=== PATIENT | male | born 1940 | race Caucasian/White ===

== ENCOUNTER 2017-10-04 12:43 | Inpatient (IN) | payer MEDICARE ==
[~2017-10-04] VITALS: Ht 193 cm; Wt 113.9 kg
[2017-10-04 13:33] LABS: BASOPHILS ABSOLUTE AUTO 0.07 K/mm3 (0.00-0.23); BASOPHILS PERCENT AUTO 0 % (0-2); EOSINOPHILS ABSOLUTE AUTO 0.01 K/mm3 (0.00-0.68); EOSINOPHILS PERCENT AUTO 0 % (0-6); Hematocrit 41.6 % (37.0-53.0); Hemoglobin 12.9 g/dL (13.5-17.5); IMMATURE GRAN ABSOLUTE AUTO 0.13 K/mm3 (0.00-0.10); IMMATURE GRAN PERCENT AUTO 1 % (0-1); LYMPHOCYTES PERCENT AUTO 5 % (21-46); MONOCYTES ABSOLUTE AUTO 1.42 K/mm3 (0.16-1.47); MONOCYTES PERCENT AUTO 8 % (4-13); Mean Corpuscular HGB 26.3 pg (26.0-34.0); Mean Corpuscular Volume 85 fL (80-100); Mean Platelet Volume 9.5 fL (9.1-12.4); NEUTROPHILS ABSOLUTE AUTO 14.92 K/mm3 (1.96-9.15); NEUTROPHILS PERCENT AUTO 86 % (41-73); Platelet Count 277 K/mm3 (150-400); RDW Coefficient Variation 15.7 % (11.7-14.2); RDW Standard Deviation 48.4 fL (35.1-46.3); Red Blood Cell Count 4.91 M/mm3 (4.30-5.90); White Blood Cell Count 17.35 K/mm3 (4.00-11.30)
[2017-10-04 13:52] LABS: Alanine Aminotransfer (ALT/SGP 19 U/L (12-78); Albumin, Blood 2.1 g/dL (3.4-5.0); Albumin/Globulin Ratio 0.4 (0.8-1.8); Alk Phos 145 U/L (50-136); Anion Gap 11 mmol/L (6-16); Aspartate Aminotrans (AST/SGOT 24 U/L (12-37); Blood Urea Nitrogen 25 mg/dL (8-24); Bun/Creatinine Ratio 22.1 (12.0-20.0); CO2, Blood 24 mmol/L (21-32); Calcium, Blood 9.2 mg/dL (8.5-10.1); Chloride, Blood 101 mmol/L (98-108); Creatinine, Blood 1.13 mg/dL (0.60-1.20); Globulin, Blood 5.6 g/dL (2.2-4.0); Glomerular Filtration Rate >60 (60-); Glucose, Blood 274 mg/dL (70-99); Potassium, Blood 4.7 mmol/L (3.5-5.5); Sodium, Blood 136 mmol/L (136-145); Total Protein, Blood 7.7 g/dL (6.4-8.2); Troponin I <0.015 ng/mL (0.000-0.040)
[2017-10-04 14:04] LABS: Influenza A Negative (NEGATIVE); Influenza B Negative (NEGATIVE)
[2017-10-04] MEDS ORDERED: WARF3 PO (15:30)
[2017-10-04] MEDS ORDERED: DIGOX125 MCG PO (15:30)
[2017-10-04] MEDS ORDERED: LISI20 (15:31)
[2017-10-04] MEDS ORDERED: SPIR50 PO (15:31)
[2017-10-04] MEDS ORDERED: METO50 PO (15:31)
[2017-10-04] MEDS ORDERED: GLIP5 PO (15:32)
[2017-10-04] MEDS ORDERED: FURO20 PO (15:32)
[2017-10-04] MEDS ORDERED: PIOG15 PO (15:32)
[2017-10-04] MEDS ORDERED: POTCHL10ER PO (15:32)
[2017-10-04 19:01] LABS: Prothrombin Time Results 70.3 Sec (9.7-11.5)
[2017-10-04 19:08] LABS: International Normalized Ratio 6.38
[2017-10-05 05:48] LABS: BASOPHILS ABSOLUTE AUTO 0.07 K/mm3 (0.00-0.23); BASOPHILS PERCENT AUTO 0 % (0-2); EOSINOPHILS ABSOLUTE AUTO 0.09 K/mm3 (0.00-0.68); EOSINOPHILS PERCENT AUTO 1 % (0-6); Hematocrit 36.9 % (37.0-53.0); Hemoglobin 11.4 g/dL (13.5-17.5); IMMATURE GRAN PERCENT AUTO 1 % (0-1); LYMPHOCYTES ABSOLUTE AUTO 1.15 K/mm3 (0.84-5.20); LYMPHOCYTES PERCENT AUTO 7 % (21-46); MONOCYTES ABSOLUTE AUTO 1.64 K/mm3 (0.16-1.47); MONOCYTES PERCENT AUTO 10 % (4-13); Mean Corpuscular HGB 26.3 pg (26.0-34.0); Mean Corpuscular HGB Conc 30.9 g/dL (31.5-36.5); Mean Corpuscular Volume 85 fL (80-100); Mean Platelet Volume 9.9 fL (9.1-12.4); NEUTROPHILS ABSOLUTE AUTO 12.87 K/mm3 (1.96-9.15); NEUTROPHILS PERCENT AUTO 81 % (41-73); Platelet Count 251 K/mm3 (150-400); RDW Coefficient Variation 15.6 % (11.7-14.2); RDW Standard Deviation 48.2 fL (35.1-46.3); Red Blood Cell Count 4.34 M/mm3 (4.30-5.90); White Blood Cell Count 15.92 K/mm3 (4.00-11.30)
[2017-10-05 06:03] LABS: Prothrombin Time Results 54.4 Sec (9.7-11.5)
[2017-10-05 06:07] LABS: International Normalized Ratio 4.98
[2017-10-05 06:26] LABS: Alanine Aminotransfer (ALT/SGP 17 U/L (12-78); Albumin, Blood 1.7 g/dL (3.4-5.0); Albumin/Globulin Ratio 0.3 (0.8-1.8); Alk Phos 122 U/L (50-136); Anion Gap 8 mmol/L (6-16); Aspartate Aminotrans (AST/SGOT 23 U/L (12-37); Bilirubin, Total 0.9 mg/dL (0.1-1.0); Blood Urea Nitrogen 24 mg/dL (8-24); Bun/Creatinine Ratio 23.8 (12.0-20.0); CO2, Blood 25 mmol/L (21-32); Calcium, Blood 8.8 mg/dL (8.5-10.1); Chloride, Blood 104 mmol/L (98-108); Creatinine, Blood 1.01 mg/dL (0.60-1.20); Digoxin (Lanoxin) 0.76 ug/mL (0.80-2.00); Globulin, Blood 4.9 g/dL (2.2-4.0); Glomerular Filtration Rate >60 (60-); Glucose, Blood 124 mg/dL (70-99); Sodium, Blood 137 mmol/L (136-145); Total Protein, Blood 6.6 g/dL (6.4-8.2)
[2017-10-06 05:40] LABS: BASOPHILS ABSOLUTE AUTO 0.08 K/mm3 (0.00-0.23); BASOPHILS PERCENT AUTO 1 % (0-2); EOSINOPHILS ABSOLUTE AUTO 0.28 K/mm3 (0.00-0.68); EOSINOPHILS PERCENT AUTO 2 % (0-6); Hematocrit 35.1 % (37.0-53.0); Hemoglobin 10.6 g/dL (13.5-17.5); IMMATURE GRAN ABSOLUTE AUTO 0.15 K/mm3 (0.00-0.10); IMMATURE GRAN PERCENT AUTO 1 % (0-1); LYMPHOCYTES PERCENT AUTO 8 % (21-46); MONOCYTES ABSOLUTE AUTO 1.32 K/mm3 (0.16-1.47); MONOCYTES PERCENT AUTO 9 % (4-13); Mean Corpuscular HGB 25.9 pg (26.0-34.0); Mean Corpuscular HGB Conc 30.2 g/dL (31.5-36.5); Mean Corpuscular Volume 86 fL (80-100); Mean Platelet Volume 9.6 fL (9.1-12.4); NEUTROPHILS PERCENT AUTO 79 % (41-73); Platelet Count 266 K/mm3 (150-400); RDW Coefficient Variation 15.9 % (11.7-14.2); RDW Standard Deviation 49.8 fL (35.1-46.3); Red Blood Cell Count 4.09 M/mm3 (4.30-5.90); White Blood Cell Count 14.53 K/mm3 (4.00-11.30)
[2017-10-06 05:52] LABS: International Normalized Ratio 1.71; Prothrombin Time Results 18.1 Sec (9.7-11.5)
[2017-10-06 12:41] LABS: International Normalized Ratio 1.61
[2017-10-07 06:00] LABS: BASOPHILS ABSOLUTE AUTO 0.08 K/mm3 (0.00-0.23); BASOPHILS PERCENT AUTO 1 % (0-2); EOSINOPHILS ABSOLUTE AUTO 0.38 K/mm3 (0.00-0.68); EOSINOPHILS PERCENT AUTO 3 % (0-6); Hematocrit 35.7 % (37.0-53.0); Hemoglobin 11.1 g/dL (13.5-17.5); IMMATURE GRAN ABSOLUTE AUTO 0.16 K/mm3 (0.00-0.10); IMMATURE GRAN PERCENT AUTO 1 % (0-1); LYMPHOCYTES ABSOLUTE AUTO 1.37 K/mm3 (0.84-5.20); LYMPHOCYTES PERCENT AUTO 11 % (21-46); MONOCYTES ABSOLUTE AUTO 1.22 K/mm3 (0.16-1.47); MONOCYTES PERCENT AUTO 10 % (4-13); Mean Corpuscular HGB 26.1 pg (26.0-34.0); Mean Corpuscular HGB Conc 31.1 g/dL (31.5-36.5); Mean Corpuscular Volume 84 fL (80-100); Mean Platelet Volume 9.7 fL (9.1-12.4); NEUTROPHILS ABSOLUTE AUTO 9.17 K/mm3 (1.96-9.15); NEUTROPHILS PERCENT AUTO 74 % (41-73); Platelet Count 298 K/mm3 (150-400); RDW Coefficient Variation 15.8 % (11.7-14.2); Red Blood Cell Count 4.25 M/mm3 (4.30-5.90); White Blood Cell Count 12.38 K/mm3 (4.00-11.30)
[2017-10-07 06:15] LABS: International Normalized Ratio 1.46; Prothrombin Time Results 15.4 Sec (9.7-11.5)
[2017-10-07 06:26] LABS: Anion Gap 6 mmol/L (6-16); Blood Urea Nitrogen 28 mg/dL (8-24); Bun/Creatinine Ratio 26.7 (12.0-20.0); CO2, Blood 28 mmol/L (21-32); Calcium, Blood 8.9 mg/dL (8.5-10.1); Chloride, Blood 103 mmol/L (98-108); Creatinine, Blood 1.05 mg/dL (0.60-1.20); Glomerular Filtration Rate >60 (60-); Glucose, Blood 118 mg/dL (70-99); Potassium, Blood 4.1 mmol/L (3.5-5.5); Sodium, Blood 137 mmol/L (136-145)
[2017-10-08 05:19] LABS: Hematocrit 37.5 % (37.0-53.0); Hemoglobin 11.3 g/dL (13.5-17.5); Mean Corpuscular HGB 25.5 pg (26.0-34.0); Mean Corpuscular HGB Conc 30.1 g/dL (31.5-36.5); Mean Corpuscular Volume 85 fL (80-100); Mean Platelet Volume 9.5 fL (9.1-12.4); Platelet Count 339 K/mm3 (150-400); RDW Coefficient Variation 15.8 % (11.7-14.2); RDW Standard Deviation 48.3 fL (35.1-46.3); Red Blood Cell Count 4.44 M/mm3 (4.30-5.90); White Blood Cell Count 12.33 K/mm3 (4.00-11.30)
[2017-10-08 05:29] LABS: International Normalized Ratio 1.75; Prothrombin Time Results 18.5 Sec (9.7-11.5)
[2017-10-08 05:53] LABS: Albumin, Blood 1.7 g/dL (3.4-5.0); Anion Gap 8 mmol/L (6-16); Blood Urea Nitrogen 31 mg/dL (8-24); Bun/Creatinine Ratio 29.2 (12.0-20.0); CO2, Blood 28 mmol/L (21-32); Calcium, Blood 9.4 mg/dL (8.5-10.1); Chloride, Blood 102 mmol/L (98-108); Creatinine, Blood 1.06 mg/dL (0.60-1.20); Digoxin (Lanoxin) 1.71 ug/mL (0.80-2.00); Glomerular Filtration Rate >60 (60-); Glucose, Blood 117 mg/dL (70-99); Potassium, Blood 4.7 mmol/L (3.5-5.5); Sodium, Blood 138 mmol/L (136-145)
[2017-10-08] MEDS ORDERED: GUAI600T33 PO (16:16)
[2017-10-08] MEDS ORDERED: AZIT500 PO (16:16)
[2017-10-08] MEDS ORDERED: ALBU90OI6 INH (16:17)
[2017-10-08] MEDS ORDERED: CEFU500T30 PO (16:18)
== END 2017-10-08 16:44 | disposition home or self-care (01) | DRG 871 ==
LOC: ER 12:43 → MEDS 15:54
PROVIDERS: Emergency Medicine; Family Medicine; Internal Medicine; Physician Assistant
PROC: 2Y41X5Z Packing of Nasal Region using Packing Material (ICD-10-PCS; principal; 2017-10-04)
DX: A41.9 Sepsis, unspecified organism (principal); J18.9 Pneumonia, unspecified organism; J96.01 Acute respiratory failure with hypoxia; J91.8 Pleural effusion in other conditions classified elsewhere; I48.2 Chronic atrial fibrillation; E11.22 Type 2 diabetes mellitus with diabetic chronic kidney disease; R04.0 Epistaxis; N18.2 Chronic kidney disease, stage 2 (mild); I12.9 Hypertensive chronic kidney disease with stage 1 through stage 4 chronic kidney disease, or unspecified chronic kidney disease; Z66 Do not resuscitate; Z79.01 Long term (current) use of anticoagulants; Z79.84 Long term (current) use of oral hypoglycemic drugs; Z79.899 Other long term (current) drug therapy; Z86.718 Personal history of other venous thrombosis and embolism; Z87.891 Personal history of nicotine dependence
CPT/HCPCS: 36415; 71046; 80048; 80053; 80069; 80162; 82947; 83605; 83735; 83880; 84484; 85025; 85027; 85610; 87040; 87070; 87077; 87186; 87205; 87804; 93005; 93010; 93306; 94640; 94760; 96365; 96368; 97116; 97162; 97166; 97530; 97535; 99285; G8978; G8979; G8987; G8988; J0456; J0696; J1160; J1940; J7030; J7050

== ENCOUNTER → 2018-03-30 | Outpatient (CLI) | payer MEDICARE ==
[~2018-03-30] MED LIST: ALBU90OI6 INH; AZIT500 PO; CEFU500T30 PO; DIGOX125 MCG PO; FURO20 PO; GLIP5 PO; GUAI600T33 PO; LISI20; METO50 PO; PIOG15 PO; POTCHL10ER PO; SPIR50 PO; WARF3 PO
== END ==
LOC: LAB 17:57 → LAB SHORT 17:57
DX: C44.319 Basal cell carcinoma of skin of other parts of face (principal); L08.9 Local infection of the skin and subcutaneous tissue, unspecified; Z48.02 Encounter for removal of sutures
CPT/HCPCS: 87070; 87205

== ENCOUNTER → 2019-10-10 | Outpatient (CLI) | payer MEDICARE | LOC: LAB 18:48 → LAB SHORT 18:48 | DX: L08.9 Local infection of the skin and subcutaneous tissue, unspecified (principal); L57.0 Actinic keratosis | CPT/HCPCS: 87070; 87205 ==

== ENCOUNTER 2020-02-06 09:50 | Inpatient (IN) | payer MEDICARE ==
[~2020-02-06] VITALS: Ht 182.9 cm; Wt 124.5 kg
[2020-02-06 10:17] LABS: BASOPHILS ABSOLUTE AUTO 0.08 K/mm3 (0.00-0.23); BASOPHILS PERCENT AUTO 1 % (0-2); EOSINOPHILS PERCENT AUTO 4 % (0-6); Hematocrit 47.3 % (37.0-53.0); Hemoglobin 14.9 g/dL (13.5-17.5); IMMATURE GRAN ABSOLUTE AUTO 0.04 K/mm3 (0.00-0.10); IMMATURE GRAN PERCENT AUTO 0 % (0-1); LYMPHOCYTES ABSOLUTE AUTO 1.91 K/mm3 (0.84-5.20); LYMPHOCYTES PERCENT AUTO 17 % (21-46); MONOCYTES ABSOLUTE AUTO 1.08 K/mm3 (0.16-1.47); MONOCYTES PERCENT AUTO 10 % (4-13); Mean Corpuscular HGB 28.5 pg (26.0-34.0); Mean Corpuscular HGB Conc 31.5 g/dL (31.5-36.5); Mean Corpuscular Volume 91 fL (80-100); Mean Platelet Volume 9.9 fL (9.1-12.4); NEUTROPHILS ABSOLUTE AUTO 7.62 K/mm3 (1.96-9.15); NEUTROPHILS PERCENT AUTO 68 % (41-73); Platelet Count 220 K/mm3 (150-400); RDW Coefficient Variation 13.5 % (11.7-14.2); RDW Standard Deviation 44.9 fL (35.1-46.3); Red Blood Cell Count 5.22 M/mm3 (4.30-5.90); White Blood Cell Count 11.13 K/mm3 (4.00-11.30)
[2020-02-06 10:37] LABS: Alanine Aminotransfer (ALT/SGP 33 U/L (12-78); Albumin/Globulin Ratio 0.4 (0.8-1.8); Alk Phos 146 U/L (50-136); Anion Gap 8 mmol/L (6-16); Aspartate Aminotrans (AST/SGOT 39 U/L (12-37); Blood Urea Nitrogen 20 mg/dL (8-24); Bun/Creatinine Ratio 21.6 (12.0-20.0); CO2, Blood 26 mmol/L (21-32); Calcium, Blood 8.8 mg/dL (8.5-10.1); Chloride, Blood 105 mmol/L (98-108); Creatinine, Blood 0.93 mg/dL (0.60-1.20); Globulin, Blood 5.4 g/dL (2.2-4.0); Glomerular Filtration Rate >60 (60-); Glucose, Blood 183 mg/dL (70-99); Magnesium, Blood 1.6 mg/dL (1.6-2.4); Potassium, Blood 4.1 mmol/L (3.5-5.5); Prothrombin Time Results 69.2 Sec (9.7-11.5); Sodium, Blood 139 mmol/L (136-145); Total Protein, Blood 7.4 g/dL (6.4-8.2)
[2020-02-06 10:44] LABS: International Normalized Ratio 7.23
[2020-02-06] MEDS ORDERED: Coumadin2 MG PO (13:16)
--- NOTE | 2020-02-06 17:41 | NUR ---
SHIFT SUMMARY PT ALERT AND ORIENTED. VS STABLE. O2 SATS REMAIN ABOVE 90% ON RA. BP STABLE. HR 90-120'S. CARDIZEM GTT AT 10ML/H. PT DENIES ANY PAIN. PT HAS MULTIPLE ABRAISIONS DUE TO A FALL PRIOR TO ADMIT. PT ABLE TO REPOSITION HIMSELF IN BED. DAUGHTER CALLED AND UPDATED ON STATUS. WILL CONTINUE TO MONITOR AND REPORT TO ONCOMING RN.
--- NOTE | 2020-02-06 19:32 | NUR ---
SHIFT REPORT PT HAD GLF. MULTIPLE ABRASIONS AND BRUISING SCATTERED T/O. LACERATION/BRUISING ON RIGHT ELBOW. LACERATION ACROSS THE RIGHT SIDE OF HEAD. LACERATION ON RIGHT HAND. PT HAD MILD EPISTASIS AT 1830. BLEEDING STOPPED AFTER PRESSURE WAS HELD FOR 10 MIN. STAFF NURSE NOTIFIED. PT IS IN A-FIB WITH RATE BETWEEN 90'S-120'S. DILTIAZEM INFUSING PER EMAR. O2 SATIS ABOVE 92% ON RA. PT IS ALERT AND ORIENTED. CALL LIGHT WITHIN REACH. SHIFT REPORT GIVEN TO ONCOMING STAFF NURSE.
--- NOTE | 2020-02-06 23:09 | NUR ---
UPDATE PT'S HR IN 80-90'S NOTED ON TELE; CARDIZEM GTT TITRATED TO 5 MG/HR; NO ACUTE CHANGES NOTED
[2020-02-07 04:45] LABS: Hematocrit 42.7 % (37.0-53.0); Hemoglobin 13.4 g/dL (13.5-17.5); Mean Corpuscular HGB 28.1 pg (26.0-34.0); Mean Corpuscular HGB Conc 31.4 g/dL (31.5-36.5); Mean Corpuscular Volume 90 fL (80-100); Platelet Count 207 K/mm3 (150-400); RDW Coefficient Variation 13.3 % (11.7-14.2); RDW Standard Deviation 43.8 fL (35.1-46.3); Red Blood Cell Count 4.77 M/mm3 (4.30-5.90); White Blood Cell Count 9.79 K/mm3 (4.00-11.30)
[2020-02-07 04:59] LABS: International Normalized Ratio 1.69; Prothrombin Time Results 17.6 Sec (9.7-11.5)
[2020-02-07 05:04] LABS: Anion Gap 6 mmol/L (6-16); Blood Urea Nitrogen 16 mg/dL (8-24); Bun/Creatinine Ratio 19.6 (12.0-20.0); CO2, Blood 28 mmol/L (21-32); Calcium, Blood 8.7 mg/dL (8.5-10.1); Chloride, Blood 103 mmol/L (98-108); Creatinine, Blood 0.82 mg/dL (0.60-1.20); Glomerular Filtration Rate >60 (60-); Glucose, Blood 137 mg/dL (70-99); Potassium, Blood 3.7 mmol/L (3.5-5.5); Sodium, Blood 137 mmol/L (136-145)
--- NOTE | 2020-02-07 05:50 | NUR ---
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
--- NOTE | 2020-02-07 06:54 | NUR ---
UPDATE PT UP TO CHAIR THIS AM; HR SUSTAINING 120-130'S ON MONITOR; CARDIZEM GTT INCREASED TO 10MG/HR; PT EDUCATED ON NEED TO INCREASE AND STATES HR IS 110-115 AT BASELINE; CALL LIGHT IN REACH
--- NOTE | 2020-02-07 16:00 | NUR ---
PT WAS OFF OF CARDIZEM DRIP AROUND 1200 PT WAS STARTED ON ORAL METOPROLOL 50MG IR BID, HRR STILL AFIB NOW SUSTAINING ON THE 80'S-90'S. PT DENIES CHEST PAIN PRESSURE. SATS ABOVE 92% ON ROOMAIR, SOB WITH EXERTION, PT WAS ON 1L OF O2 FOR SUPPORT WHEN WORKING WITH THERAPY ALSO PT NOTED TO HAVE SOME OCCASIONAL WHEEZES ESPECIALLY PRE AND POST AMBULATION/TRANSFER, DR LAUREN AWARE ORDER RECEIVED FOR PRVENTIL UPDRAFT Q4HRS. PT WORKED WITH THERAPY ABLE TO AMBULATE AND TRANSFER TO CHAIR VIA WALKER 2 PA. PT HAS UNSTEADY GAIT BUT ABLE TO TAKE SOME STEPS SAFELY. PT CURRENTLY RESTING IN BED, CALL LIGHTS WITHIN REACH WILL MONITOR
--- NOTE | 2020-02-07 19:15 | NUR ---
REPORT GIVEN TO JERRY APONTE, PT REMAINS OFF OF CARDIZEM GTT, HRR REMAINS AFIB 90'S-110'S. DENIES CHEST PAIN/PRESSURE. VITALS HAS BEEN STABLE. PT CURRNETLY RESTING IN BED ABLE TO MAKE NEEDS KNOWN, CALL LIGHTS WITHIN REACH
--- NOTE | 2020-02-08 02:47 | NUR ---
ASSUMED CARE OF PATIENT AT APPROXIMATELY 1900 FROM [facility] Slaughter RN. PATIENT ALERT AND ORIENTED X4; FOREGETFUL AT TIMES; VERY HARD OF HEARING. PATIENT DENIES CP/PRESSURE, NUMBNESS, TINGLING, DIZZINESS OR NAUSEA. AFIB ON TELE W/ A RATE OF 110-115; OXYGEN SATURATION ABOVE 90% ON 1LPM VIA NC; DYSPNEA W/ ACTIVITY; HR INCREASES WITH AMBULATION. MAX ASSIST OUT OF BED. PIV S/L. PATIENT CURRENTLY RESTING IN BED; CALL LIGHT IN REACH; BED IN LOWEST POSISTION; BED ALARM ON; WILL CONTINUE TO MONITOR AND ASSESS UNTIL END OF SHIFT.
[2020-02-08 04:25] LABS: International Normalized Ratio 1.38; Prothrombin Time Results 14.5 Sec (9.7-11.5)
--- NOTE | 2020-02-08 12:08 | NUR ---
A&Ox4. PT SLOW TO RESPOND AT TIMES. OL[place]. LUNG SOUNDS WHEEZY THROUGHOUT ALL MAGDALENO. DYSPNIC. DIFFICULTY SPEAKING IN FULL SENTENCES. O2 SAT @ 94% ON RA AT THIS TIME. ON TELE. AFIB W/ RVR @ 110s. DENIES CP AT THIS TIME. STRONG PULSES THROUGHOUT. ABD DISTENDED AND FIRM. DENIES PN. LAST BM WAS 02/08/20. ABLE TO USE URINAL W/ MINIMAL ASSISTANCE. PT HAS GENERALIZED WEAKNESS. 2 PERSON ASSIST TO GET OUT OF BED. UNSTABLE ON FEET. SUSTAINED A GLF PRIOR TO ADMISSION. WOUND ON POSTERIOR HEAD. ABRASIONS ON BILAT ELBOWS, AND DISCOLORATION IN LOWER R LEG. IV IN RAC PATENT. PT CURRENTLY RESTING IN BED. BED IN LOW POSITION, RAILS UP, AND CALL LIGHT W/IN REACH.
--- NOTE | 2020-02-08 18:45 | NUR ---
SHIFT SUMMARY PT REPORTS DECREASE IN SHORTNESS OF BREATH. ABLE TO SPEAK IN FULL SENTENCES. PT WAS ANXIOUS THIS MORNING, WANTING TO GET HIS "AFFAIRS IN ORDER" BY SPEAKING WITH HIS DAUGHTER. PT WAS INITIALLY UNCOOPERATIVE WITH PT/OT BUT AFTER DAUGHTER VISIT HIS MOOD BECAME HAPPIER. DAUGHTER INFORMED THAT PT MAY REQUIRE TO GO TO A SNF BEFORE GOING HOME.
[2020-02-09 05:07] LABS: Hematocrit 42.9 % (37.0-53.0); Hemoglobin 13.6 g/dL (13.5-17.5); Mean Corpuscular HGB 28.1 pg (26.0-34.0); Mean Corpuscular HGB Conc 31.7 g/dL (31.5-36.5); Mean Corpuscular Volume 89 fL (80-100); Mean Platelet Volume 9.9 fL (9.1-12.4); Platelet Count 239 K/mm3 (150-400); RDW Coefficient Variation 13.2 % (11.7-14.2); RDW Standard Deviation 43.4 fL (35.1-46.3); Red Blood Cell Count 4.84 M/mm3 (4.30-5.90)
[2020-02-09 05:32] LABS: Anion Gap 3 mmol/L (6-16); Blood Urea Nitrogen 26 mg/dL (8-24); Bun/Creatinine Ratio 30.8 (12.0-20.0); CO2, Blood 30 mmol/L (21-32); Chloride, Blood 103 mmol/L (98-108); Creatinine, Blood 0.84 mg/dL (0.60-1.20); Glomerular Filtration Rate >60 (60-); Glucose, Blood 205 mg/dL (70-99); Potassium, Blood 3.8 mmol/L (3.5-5.5); Sodium, Blood 136 mmol/L (136-145)
--- NOTE | 2020-02-09 06:26 | NUR ---
Patient did well throughout the shift and vital signs remain stable. Patient s blood glucose was more elevated than yesterday but this is likely secondary to the new steroids medications that he took starting on 02/07. No current concerns for this patient.
--- NOTE | 2020-02-09 08:00 | NUR ---
pt laying in bed awake a/ox3, forgetful, cooperative with care, follows commands well, denies pain at this time, lungs are clear in upper haile, dim in bases, resp even and unlabored, no cough noted, hrirr, tele in place running afib in the 80's at this time, did azul down to the 50's durring the night, iv site is clear and patent, btx4, abd round soft nontender, voids without diff, skin c/w/d, maew, dianne, call light in reach.
--- NOTE | 2020-02-09 12:36 | NUR ---
pt was able to get oob and ambulate in rowell with a walker and PT this late morning, is currently sitting in a recliner in the room, became upset earlier wanting to get oob, and refusing to go to snf, but after his walk and working with PT he is agreeable to go. no needs or complaints at this time, call light in reach.
--- NOTE | 2020-02-09 18:03 | NUR ---
PT DOING OK THIS EVENING. IS IN GOOD SPIRITS, NO COMPLIANTS. AMBULATED IN THE [place] THIS AFTERNOON, HEART RATE STAYING DOWN, CALL LIGHT IN REACH.
[2020-02-10 03:56] LABS: Hematocrit 42.7 % (37.0-53.0); Hemoglobin 13.3 g/dL (13.5-17.5); Mean Corpuscular HGB Conc 31.1 g/dL (31.5-36.5); Mean Corpuscular Volume 90 fL (80-100); Mean Platelet Volume 9.9 fL (9.1-12.4); Platelet Count 265 K/mm3 (150-400); RDW Coefficient Variation 13.2 % (11.7-14.2); RDW Standard Deviation 43.5 fL (35.1-46.3); Red Blood Cell Count 4.75 M/mm3 (4.30-5.90)
[2020-02-10 04:16] LABS: Anion Gap 4 mmol/L (6-16); Blood Urea Nitrogen 36 mg/dL (8-24); Bun/Creatinine Ratio 37.9 (12.0-20.0); CO2, Blood 28 mmol/L (21-32); Calcium, Blood 8.9 mg/dL (8.5-10.1); Chloride, Blood 104 mmol/L (98-108); Creatinine, Blood 0.95 mg/dL (0.60-1.20); Glomerular Filtration Rate >60 (60-); Glucose, Blood 140 mg/dL (70-99); Magnesium, Blood 1.9 mg/dL (1.6-2.4); Sodium, Blood 136 mmol/L (136-145)
--- NOTE | 2020-02-10 05:54 | NUR ---
SHIFT SUMMARY PT A&O; PLEASANT & COMPLIANT W/ CARE; AFIB NOTED ON TELE; VSS; HR 90'S; DENIES CHEST PAIN; O2 SATS >93 ON RA; LUNG SOUNDS DIM IN BASES; DENIES N/T; PT CONCERNED W/ BM STATES HE HAD A FEW TODAY AND THINKS HE MAY NEED IMODIUM; ONLY SMEAR NOTED DURING BRIEF CHANGE; PT SLEPT SEVERAL HOURS IN BETWEEN INTERVENTIONS; CALL LIGHT IN REACH; BED IN LOWEST POSITION; BED ALARM ON; WILL CONTINUE TO MONITOR CLOSE UNTIL HAND OFF TO DAY SHIFT RN.
--- NOTE | 2020-02-10 18:31 | NUR ---
SHIFT SUMMARY: PATIENT XFR FROM PCU-12 THIS SHIFT. PT A&O; OCC IRRITABLE & ANXIOUS TO RETURN HOME; COOPERATIVE WITH CARE. NO C/O PAIN SINCE ARRIVAL ON MEDICAL FLOOR. TELE IN PLACE; A-FIB IN 80S. PT & OT FOLLOWING. EXPECTED RETURN TO [facility]" IN NEXT 1-2 DAYS. TATUM.
[2020-02-11 05:11] LABS: BASOPHILS ABSOLUTE AUTO 0.02 K/mm3 (0.00-0.23); BASOPHILS PERCENT AUTO 0 % (0-2); EOSINOPHILS ABSOLUTE AUTO 0.03 K/mm3 (0.00-0.68); EOSINOPHILS PERCENT AUTO 0 % (0-6); Hematocrit 45.2 % (37.0-53.0); IMMATURE GRAN ABSOLUTE AUTO 0.06 K/mm3 (0.00-0.10); IMMATURE GRAN PERCENT AUTO 1 % (0-1); LYMPHOCYTES ABSOLUTE AUTO 1.34 K/mm3 (0.84-5.20); LYMPHOCYTES PERCENT AUTO 14 % (21-46); MONOCYTES ABSOLUTE AUTO 0.98 K/mm3 (0.16-1.47); MONOCYTES PERCENT AUTO 10 % (4-13); Mean Corpuscular HGB 27.2 pg (26.0-34.0); Mean Corpuscular Volume 88 fL (80-100); Mean Platelet Volume 9.8 fL (9.1-12.4); NEUTROPHILS ABSOLUTE AUTO 7.33 K/mm3 (1.96-9.15); NEUTROPHILS PERCENT AUTO 75 % (41-73); Platelet Count 312 K/mm3 (150-400); RDW Standard Deviation 42.2 fL (35.1-46.3); Red Blood Cell Count 5.15 M/mm3 (4.30-5.90); White Blood Cell Count 9.76 K/mm3 (4.00-11.30)
[2020-02-11 05:38] LABS: Albumin, Blood 1.9 g/dL (3.4-5.0); Anion Gap 3 mmol/L (6-16); Blood Urea Nitrogen 40 mg/dL (8-24); CO2, Blood 30 mmol/L (21-32); Calcium, Blood 8.8 mg/dL (8.5-10.1); Chloride, Blood 104 mmol/L (98-108); Glomerular Filtration Rate >60 (60-); Glucose, Blood 143 mg/dL (70-99); Phosphorus, Blood 3.2 mg/dL (2.5-4.9); Potassium, Blood 3.8 mmol/L (3.5-5.5); Sodium, Blood 137 mmol/L (136-145)
--- NOTE | 2020-02-11 07:30 | NUR ---
SHIFT SUMMARY PATIENT ALERT AND ORIENTED BUT HARD OF HEARING.TELE IN PLACE AND SHOWS THAT THE PATIENT BECOMES MORE ACTIVE IN HIS ROOM HIS HEART RATE ELEVATES. IV PATENT AND FLUSHED. BED IN LOWEST POSITION WITH WHEELS LOCKED. CALL LIGHT WITHIN REACH. REPORT GIVEN TO ONCANGIE APONTE.
[2020-02-11] MEDS ORDERED: TYLENOL325 M1 PO (12:01)
[2020-02-11] MEDS ORDERED: ASPI81CH PO (12:02)
--- NOTE | 2020-02-11 15:19 | NUR ---
PATIENT DISCHARGE: PATIENT DISCHARGED TO HOME / XFR TO HOME HEALTH THIS SHIFT. MEDICATION RECONCILIATION COMPLETED; MED LIST CALLED TO [facility]. DISCHARGE EDUCATION COMPLETED WITH PATIENT. PATIENT TRANSPORTED TO EXIT BY [facility] STAFF WITH WHEELCHAIR AT 1440. PATIENT DEPARTED [facility] VIA PRIVATE AUTO.
== END 2020-02-11 14:43 | disposition home health service (06) | DRG 308 ==
LOC: ER 09:50 → PCU 09:51 → MEDS 02-10 11:49
PROVIDERS: Emergency Medicine; Family Medicine; ADMIT Internal Medicine
DX: I48.91 Unspecified atrial fibrillation (principal); J96.01 Acute respiratory failure with hypoxia; I50.33 Acute on chronic diastolic (congestive) heart failure; I13.0 Hypertensive heart and chronic kidney disease with heart failure and stage 1 through stage 4 chronic kidney disease, or unspecified chronic kidney disease; J44.1 Chronic obstructive pulmonary disease with (acute) exacerbation; N18.3 Chronic kidney disease, stage 3 (moderate); E11.22 Type 2 diabetes mellitus with diabetic chronic kidney disease; E66.9 Obesity, unspecified; Z86.711 Personal history of pulmonary embolism; Z79.01 Long term (current) use of anticoagulants; Z86.718 Personal history of other venous thrombosis and embolism; R79.1 Abnormal coagulation profile; Z68.36 Body mass index [BMI] 36.0-36.9, adult; Z91.81 History of falling; W19.XXXA Unspecified fall, initial encounter; Z87.891 Personal history of nicotine dependence; R04.0 Epistaxis
CPT/HCPCS: 30903; 36415; 70450; 71045; 80048; 80053; 80069; 82947; 83735; 85025; 85027; 85610; 93005; 93010; 94640; 94762; 96365-59; 96375; 96375-59; 96376; 97110; 97116; 97162; 97166; 97530; 99285-25; A9270-GY; C8929; G0378; J1940; J2930; J3430; J7512; Q9957

== ENCOUNTER 2020-07-17 13:52 | Emergency (ER) | payer MEDICARE ==
[~2020-07-17] VITALS: Ht 193 cm; Wt 117.9 kg
[~2020-07-17 13:52] MED LIST changes: +ASPI81CH PO; +Coumadin2 MG PO; +TYLENOL325 M1 PO
[2020-07-17 14:30] LABS: BASOPHILS ABSOLUTE AUTO 0.03 K/mm3 (0.00-0.23); BASOPHILS PERCENT AUTO 1 % (0-2); EOSINOPHILS ABSOLUTE AUTO 0.09 K/mm3 (0.00-0.68); EOSINOPHILS PERCENT AUTO 2 % (0-6); Hematocrit 51.7 % (37.0-53.0); IMMATURE GRAN ABSOLUTE AUTO 0.01 K/mm3 (0.00-0.10); IMMATURE GRAN PERCENT AUTO 0 % (0-1); LYMPHOCYTES ABSOLUTE AUTO 1.48 K/mm3 (0.84-5.20); LYMPHOCYTES PERCENT AUTO 27 % (21-46); MONOCYTES ABSOLUTE AUTO 0.82 K/mm3 (0.16-1.47); MONOCYTES PERCENT AUTO 15 % (4-13); Mean Corpuscular HGB 27.1 pg (26.0-34.0); Mean Corpuscular HGB Conc 30.9 g/dL (31.5-36.5); Mean Corpuscular Volume 88 fL (80-100); Mean Platelet Volume 9.8 fL (9.1-12.4); NEUTROPHILS ABSOLUTE AUTO 3.16 K/mm3 (1.96-9.15); NEUTROPHILS PERCENT AUTO 57 % (41-73); Platelet Count 169 K/mm3 (150-400); RDW Standard Deviation 44.9 fL (35.1-46.3); White Blood Cell Count 5.59 K/mm3 (4.00-11.30)
[2020-07-17 15:00] LABS: Alanine Aminotransfer (ALT/SGP 21 U/L (12-78); Albumin, Blood 2.4 g/dL (3.4-5.0); Albumin/Globulin Ratio 0.5 (0.8-1.8); Alk Phos 114 U/L (50-136); Anion Gap 6 mmol/L (6-16); Aspartate Aminotrans (AST/SGOT 29 U/L (12-37); Bilirubin, Total 0.6 mg/dL (0.1-1.0); Blood Urea Nitrogen 19 mg/dL (8-24); Bun/Creatinine Ratio 17.4 (12.0-20.0); CO2, Blood 28 mmol/L (21-32); Calcium, Blood 9.3 mg/dL (8.5-10.1); Chloride, Blood 105 mmol/L (98-108); Creatinine, Blood 1.09 mg/dL (0.60-1.20); Globulin, Blood 4.8 g/dL (2.2-4.0); Glomerular Filtration Rate >60 (60-); Glucose, Blood 136 mg/dL (70-99); Potassium, Blood 4.4 mmol/L (3.5-5.5); Sodium, Blood 139 mmol/L (136-145); Total Protein, Blood 7.2 g/dL (6.4-8.2)
[2020-07-17] MEDS ORDERED: VIGAMOX3 ML BOTHEYES (15:42)
[2020-07-17] MEDS ORDERED: DOXYCYCLINE HY100 M1 PO (15:43)
[2020-07-17 16:55] LABS: Source, Urine Voided
[2020-07-17 17:00] LABS: Appearance, Urine Clear (Clear); Bilirubin, Urine Neg (Neg); Blood, Urine 2+ (Neg); Color, Urine Amber (P-Yellow); Glucose Qualitative, Urine Neg (Neg); Ketones, Urine 1+ (Neg); Leukocyte Esterase, Urine Neg (Neg); Nitrite, Urine Neg (Neg); Protein, Urine 4+ (Neg); Specific Gravity, Urine 1.025 (1.003-1.022); Urobilinogen, Urine NORM (Normal)
[2020-07-17 17:03] LABS: Influenza A, PCR Negative (NEGATIVE); Influenza B, PCR Negative (NEGATIVE); Resp Syncytial Virus, PCR Negative (NEGATIVE); SARS-Cov-2 (COVID-19) PCR, MMC Negative (NEGATIVE)
[2020-07-17 17:15] LABS: Bacteria Few /hpf; Squamous Epithelial Cells Few /hpf (Few)
[2020-07-17] MEDS ORDERED: AZIT250 PO (19:32)
[2020-08-02] MEDS ORDERED: DILT30 PO (11:44)
[2020-08-02] MEDS ORDERED: LEVAQUIN750 MG PO (11:45)
[2020-08-02] MEDS ORDERED: PRED20 PO (11:46)
[2020-08-02] MEDS ORDERED: ONDA4 PO (11:47)
[2020-08-02] MEDS ORDERED: VISBIOME PROBIOTIC PO (11:48)
== END 2020-07-17 20:36 | disposition home or self-care (01) ==
LOC: ER 13:52
PROVIDERS: Emergency Medicine; Physician Assistant
DX: J40 Bronchitis, not specified as acute or chronic (principal); I12.9 Hypertensive chronic kidney disease with stage 1 through stage 4 chronic kidney disease, or unspecified chronic kidney disease; N18.9 Chronic kidney disease, unspecified; E11.9 Type 2 diabetes mellitus without complications; I48.91 Unspecified atrial fibrillation; Z20.828 Contact with and (suspected) exposure to other viral communicable diseases; Z86.718 Personal history of other venous thrombosis and embolism; Z79.82 Long term (current) use of aspirin; Z79.84 Long term (current) use of oral hypoglycemic drugs; Z79.899 Other long term (current) drug therapy
CPT/HCPCS: 0241U; 71046; 71260; 80053; 81001; 83880; 84484; 85025; 93005; 93010; 96365-59; 99285-25; J0456; J7050; Q9967

== ENCOUNTER 2021-04-10 09:18 | Emergency (ER) | payer MEDICARE ==
[~2021-04-10] VITALS: Ht 193 cm; Wt 122.5 kg
[~2021-04-10 09:18] MED LIST changes: +ACET325 PO; +ALBU2.5V5 INH; +ASPI325EC PO; -ASPI81CH PO; +AZIT250 PO; +DILT30 PO; +DOXYCYCLINE HY100 M1 PO; +LEVAQUIN750 MG PO; +ONDA4 PO; +PRED20 PO; +SEEBRI NEOHA15.6 MC1 PO; +VIGAMOX3 ML BOTHEYES; +VISBIOME PROBIOTIC PO
== END 2021-04-10 15:15 | disposition home or self-care (01) ==
LOC: ER 09:18
DX: M79.651 Pain in right thigh (principal); M16.0 Bilateral primary osteoarthritis of hip; I86.8 Varicose veins of other specified sites; E11.9 Type 2 diabetes mellitus without complications; Z79.899 Other long term (current) drug therapy; Z79.84 Long term (current) use of oral hypoglycemic drugs; Z79.82 Long term (current) use of aspirin
CPT/HCPCS: 73502; 93971; 99284-25

== ENCOUNTER 2023-08-21 19:48 | Inpatient (IN) | payer MEDICARE ==
[~2023-08-21] VITALS: Ht 193 cm; Wt 114.7 kg
[2023-08-21 21:25] LABS: BASOPHILS ABSOLUTE AUTO 0.07 K/mm3 (0.00-0.23); BASOPHILS PERCENT AUTO 0 % (0-2); EOSINOPHILS ABSOLUTE AUTO 0.09 K/mm3 (0.00-0.68); EOSINOPHILS PERCENT AUTO 1 % (0-6); Hematocrit 47.1 % (37.0-53.0); Hemoglobin 15.4 g/dL (13.5-17.5); IMMATURE GRAN ABSOLUTE AUTO 0.07 K/mm3 (0.00-0.10); IMMATURE GRAN PERCENT AUTO 0 % (0-1); LYMPHOCYTES ABSOLUTE AUTO 1.65 K/mm3 (0.84-5.20); LYMPHOCYTES PERCENT AUTO 9 % (21-46); MONOCYTES ABSOLUTE AUTO 1.41 K/mm3 (0.16-1.47); MONOCYTES PERCENT AUTO 8 % (4-13); Mean Corpuscular HGB 28.3 pg (26.0-34.0); Mean Corpuscular HGB Conc 32.7 g/dL (31.5-36.5); Mean Corpuscular Volume 87 fL (80-100); Mean Platelet Volume 9.5 fL (9.1-12.4); NEUTROPHILS ABSOLUTE AUTO 14.36 K/mm3 (1.96-9.15); NEUTROPHILS PERCENT AUTO 81 % (41-73); Platelet Count 180 K/mm3 (150-400); RDW Coefficient Variation 13.7 % (11.7-14.2); RDW Standard Deviation 43.4 fL (35.1-46.3); Red Blood Cell Count 5.44 M/mm3 (4.30-5.90); White Blood Cell Count 17.65 K/mm3 (4.00-11.30)
[2023-08-21 21:31] LABS: Base Excess Venous -0.2 mmol/L; Bicarbonate Venous 24.2 mmol/L (24.0-30.0); PCO2 Venous 40.7 mmHg (38-42); pH Blood Venous 7.39 (7.34-7.37)
[2023-08-21 21:44] LABS: Albumin, Blood 2.5 g/dL (3.4-5.0); Albumin/Globulin Ratio 0.5 (0.8-1.8); Bilirubin, Total 0.8 mg/dL (0.1-1.0); Bun/Creatinine Ratio 21.2 (12.0-20.0); Calcium, Blood 9.3 mg/dL (8.5-10.1); Creatinine, Blood 1.04 mg/dL (0.60-1.20); Potassium, Blood 4.1 mmol/L (3.5-5.5); Total Protein, Blood 7.5 g/dL (6.4-8.2)
[2023-08-21 22:04] LABS: Influenza A, PCR NEGATIVE (NEGATIVE); Influenza B, PCR NEGATIVE (NEGATIVE); Resp Syncytial Virus, PCR NEGATIVE (NEGATIVE); SARS-Cov-2 (COVID-19) PCR, MMC NEGATIVE (NEGATIVE)
[2023-08-22] MEDS ORDERED: METO25ER PO (01:28)
[2023-08-22 02:24] VITALS: BP 150/92
[2023-08-22 05:46] LABS: BASOPHILS ABSOLUTE AUTO 0.06 K/mm3 (0.00-0.23); BASOPHILS PERCENT AUTO 0 % (0-2); EOSINOPHILS ABSOLUTE AUTO 0.04 K/mm3 (0.00-0.68); EOSINOPHILS PERCENT AUTO 0 % (0-6); Hematocrit 41.7 % (37.0-53.0); Hemoglobin 13.3 g/dL (13.5-17.5); IMMATURE GRAN ABSOLUTE AUTO 0.06 K/mm3 (0.00-0.10); IMMATURE GRAN PERCENT AUTO 0 % (0-1); LYMPHOCYTES PERCENT AUTO 12 % (21-46); MONOCYTES ABSOLUTE AUTO 1.04 K/mm3 (0.16-1.47); MONOCYTES PERCENT AUTO 8 % (4-13); Mean Corpuscular HGB 27.9 pg (26.0-34.0); Mean Corpuscular HGB Conc 31.9 g/dL (31.5-36.5); Mean Corpuscular Volume 87 fL (80-100); Mean Platelet Volume 9.9 fL (9.1-12.4); NEUTROPHILS ABSOLUTE AUTO 10.89 K/mm3 (1.96-9.15); NEUTROPHILS PERCENT AUTO 80 % (41-73); Platelet Count 172 K/mm3 (150-400); RDW Coefficient Variation 13.9 % (11.7-14.2); RDW Standard Deviation 44.5 fL (35.1-46.3); Red Blood Cell Count 4.77 M/mm3 (4.30-5.90); White Blood Cell Count 13.69 K/mm3 (4.00-11.30)
[2023-08-22 06:06] LABS: Albumin/Globulin Ratio 0.5 (0.8-1.8); Bilirubin, Total 0.8 mg/dL (0.1-1.0); Bun/Creatinine Ratio 21.1 (12.0-20.0); Calcium, Blood 8.4 mg/dL (8.5-10.1); Creatinine, Blood 0.85 mg/dL (0.60-1.20); Globulin, Blood 4.1 g/dL (2.2-4.0); Potassium, Blood 4.5 mmol/L (3.5-5.5); Total Protein, Blood 6.1 g/dL (6.4-8.2)
[2023-08-22 07:16] VITALS: BP 127/80
--- NOTE | 2023-08-22 07:28 | NUR ---
PT ADMITTED TO ROOM 331. A&OX4. [place], BILATERALLY HEARING AIDS IN. ABLE TO STAND AND PIVOT TO BED FROM [facility]. DENIES ANY SOB. O2 SATS > 90% ON 2 LPM VIA NC. DENIES CHEST PAIN/PRESSURE. HR A-FIB IN 80'S. RESTING IN BED. CALL LIGHT IN REACH. BED IN LOW POSITION.
--- NOTE | 2023-08-22 15:22 | NUR ---
RECEIVED CALL FROM [employer] STATING THAT PT'S HEART RATE HAD BEEN TRENDING DOWN AND IS CURRENTLY IN HIGH 40'S AT TIMES, BUT MOSTLY 50-60'S. PT HAS BEEN RESTING WITH EYES CLOSED FOR APPROX 45 MINTUES, O2 IN PLACE. CALLED HOSPITALIST, NO NEW ORDERS AT THIS TIME. PARTS BACK COUNTER MAN REPORTED PT WAS COUGHING UP BLOOD EARLIER IN THE SHIFT. DISCUSSED WITH PT WHO STATED THAT HE HAD A NOSEBLEED AND THAT IS WHERE THE BLOOD HAD COME FROM. ALSO RECEIVED A CALL FROM LAB WHO STATED THE SPUTUM SAMPLE THAT WAS SENT WAS SUBOPTIMAL AND REQUESTED ANOTHER.
[2023-08-22 15:29] VITALS: BP 119/84
--- NOTE | 2023-08-22 17:18 | NUR ---
SHIFT SUMMARY: MELISSA IS A&OX4. VSS WITH THE EXCEPTION OF PT'S HEART RATE DROPPING WHILE SLEEPING THIS AFTERNOON. CURRENTLY, HEART RATE A-FIB AT 66. PT IS TOLERATING PO INTAKE WELL, USING THE URINAL WITHOUT DIFFICULTY, AND DENIES PAIN. MAINTAINING SATS ON 2L VIA NC. IV TO R FOREARM PATENT. HE IS LYING IN BED WITH THE CALL LIGHT IN REACH. WCTM UNTIL REPORT IS GIVEN TO LICENSED JOURNEYMAN ELECTRICIAN RN.
[2023-08-22 20:33] VITALS: BP 130/79
--- NOTE | 2023-08-23 00:49 | NUR ---
ASSUMED PT CARE FORM RN ON DAYSHIT. A&OX4. [place]. PLEASANT AND COOPATIVE. HR A-FIB 80'S. DENIES CHEST PAIN/PRESSURE. BP STABLE. DENIES FEELING SOB. O2 SATS MAINTAINED ON 2 LPM VIA NC. REPSIRATIONS EVEN AND UNLABORED. OCCAIONAL PRODUCTIVE COUGH. STAND AT BEDSIDE WITH SBA TO VOID IN URINAL. URINE CLEAR, YELLOW. DENIES NEEDS AT THIS TIME. CALL LIGHT IN REACH. BED IN LOW POSITION.
[2023-08-23 04:42] VITALS: BP 147/69
--- NOTE | 2023-08-23 05:17 | NUR ---
SHIFT SUMMARY: NO ACUTE CHANGES NOTED ON THIS SHIFT. RESTING IN BED WITH EYES CLOSED. VOIDING CLEAR, TEA COLORED URINE IN URINAL WITHOUT DIFFICULTY. CALL LIGHT IN REACH. BED IN LOW POSITION.
[2023-08-23 08:10] VITALS: BP 131/77
--- NOTE | 2023-08-23 09:00 | NUR ---
pt sitting up on the side of the bed a/ox4, very [place], pleasant and cooperative with care, follows commands well, denies pain, lungs are very dim t/o, resp even and unlabored, has a productive cough, hrirr, tele in place running afib per monitor, see strip, no edema noted, ppp+1, cap refill <3 sec, vs stable, afebrile, piv site is clear and patent, btx4, abd flat soft nontender, voids via urinal, guevara urine, skin c/w/d, maew, dianne, call light in reach, wanting to go home today, but will stay another day.
[2023-08-23 16:51] VITALS: BP 144/87
--- NOTE | 2023-08-23 18:28 | NUR ---
pt sits up on the side of the bed for meals, doing ok coughing up a lot of phlem, family was in to see him, no acute changes this shift. call light in reach.
[2023-08-23 20:56] VITALS: BP 146/93
--- NOTE | 2023-08-24 02:53 | NUR ---
SHIFT SUMMARY PT AWAKE DURING SHIFT REPORT, RESTING QUIETLY WATCHING TV. ADMITTED FOR SEPSIS R/T PNM; IMPROVING. RECEIVING IV ABX PER EMAR. INDEPENDENT TO EOB TO USE URINAL NEEDED. A-FIB IN THE 80'S ON TELE. VERY [place], ESPECIALLY WHEN HEARING AIDS ARE OUT. DRY FLAKEY SKIN, WITH MOLES COVERING BACK. CO-OP WITH CARE. CALL LT IN REACH, ABLE TO MAKE NEEDS KNOWN.
[2023-08-24 03:48] VITALS: BP 158/97
[2023-08-24 05:45] LABS: BASOPHILS ABSOLUTE AUTO 0.05 K/mm3 (0.00-0.23); BASOPHILS PERCENT AUTO 1 % (0-2); EOSINOPHILS ABSOLUTE AUTO 0.27 K/mm3 (0.00-0.68); EOSINOPHILS PERCENT AUTO 3 % (0-6); Hematocrit 40.3 % (37.0-53.0); Hemoglobin 12.8 g/dL (13.5-17.5); IMMATURE GRAN ABSOLUTE AUTO 0.03 K/mm3 (0.00-0.10); IMMATURE GRAN PERCENT AUTO 0 % (0-1); LYMPHOCYTES PERCENT AUTO 13 % (21-46); MONOCYTES PERCENT AUTO 11 % (4-13); Mean Corpuscular HGB 28.1 pg (26.0-34.0); Mean Corpuscular HGB Conc 31.8 g/dL (31.5-36.5); Mean Corpuscular Volume 89 fL (80-100); Mean Platelet Volume 10.2 fL (9.1-12.4); NEUTROPHILS ABSOLUTE AUTO 6.63 K/mm3 (1.96-9.15); NEUTROPHILS PERCENT AUTO 72 % (41-73); Platelet Count 174 K/mm3 (150-400); RDW Coefficient Variation 13.7 % (11.7-14.2); RDW Standard Deviation 44.7 fL (35.1-46.3); Red Blood Cell Count 4.55 M/mm3 (4.30-5.90); White Blood Cell Count 9.18 K/mm3 (4.00-11.30)
[2023-08-24 06:14] LABS: Bun/Creatinine Ratio 20.8 (12.0-20.0); Creatinine, Blood 0.87 mg/dL (0.60-1.20); Potassium, Blood 4.4 mmol/L (3.5-5.5)
[2023-08-24 08:17] VITALS: BP 134/97
[2023-08-24 15:47] VITALS: BP 133/95
--- NOTE | 2023-08-24 18:00 | NUR ---
SHIFT SUMMARY PT TAKEN OFF O2 THIS MORNING APPROX 1100 AND HAS REMAINED IN LOW 90'S SINCE. HEART RATE BETWEEN 100-130. INCREASESE WITH ACTIVITY. WALKED IN HALLWAY APPROX 70 FEET AND PULSE OX INCREASED TO MID-HIGH 90'S. INCENTIVE SPIROMETER GIVEN AND INSTRUCTED ON. ENCOURAGED TO USE HOURLY WHEN AWAKE. SHOWER TAKEN AND HAD TROUBLE WITH GETTING HIS FEET UNDER HIM AND L KNEE STRUGGLED TO HOLD HIM AND HE HAD TO LEAN AGAINST WALL BUT WAS UNABLE TO CONTINUE TO WALK SO CHAIR PLACED BEHIND HIM AND PUSHED TO BED. DAUGHTER CALLED WITH UPDATE. DENIES ANY SOB OR RESP DISTRESS WITH ACTIVITY.
[2023-08-24 20:10] VITALS: BP 139/85
[2023-08-25 01:48] VITALS: BP 144/76
--- NOTE | 2023-08-25 04:13 | NUR ---
SHIFT SUMMARY PT IS A&OX4, VERY TELLER. HAS BILATERAL HEARING AIDES. VSS ON RA. USING INCENTIVE SPIROMETER FREQUENTLY WITH GOOD RESULTS. A-FIB PER TELEMETRY RATES @ 130 WITH ACTIVITY. DENIES SOB OR CHEST PAIN/PRESSURE. BLE +2 EDEMA. DENIES PAIN. ON A REGULAR DIET. USES URINAL INDEPENDENTLY AT BEDSIDE. ADEQUATE CLEAR, YELLOW URINE OUTPUT. NO BM THIS SHIFT. BED IN LOWEST POSITION, CALL LIGHT WITHIN REACH. FIRE SAFETY CHECKS COMPLETED
[2023-08-25 07:21] VITALS: BP 150/87
[2023-08-25 15:30] VITALS: BP 135/99
--- NOTE | 2023-08-25 18:20 | NUR ---
SHIFT SUMMARY PT DEVELOPED A NOSE BLEED THIS MORNING AFTER WALKING A SHORT DISTANCE WITH P.T. APPROX 0930. WHAT APPEARED TO BE A LARGE AMOUNT OF BLOOD DRIPPED FROM HIS NOSE OVER APPROX 5-10 MINUTES. BLEEDING EBBED BUT STILL DRIBBLED SLOWLY TIL APPROX 1230. PT WOULD SNORT THE DEVELOPING CLOT OUT AND SPIT IT OUT AND BLEEDING WOUDL CONTINUE. PT REPORTS HE FREQUENTLY HAS A BLOODY NOSE AT HOME DUE TO SUPERFICIAL VESSELS BUT THIS NOSE BLEED IS UNUSUAL FOR HIM. MD AWARE AND OFFERED A RHINO ROCKET BUT PT DECLINED ANYTHING BEING PUT IN HIS NOSE DUE TO NASAL HX. HEART RATE IMPROVED AFTER TOPROL GIVEN THIS MORNING. HAD WALKED A VERY SHORT DISTANCE WITH P.T. THIS MORNING WITH HEART RATE UP TO 170'S. THIS AFTERNOON WALKED IN HALLWAY AND APPEARED MORE STABLE THAN YESTERDAY. HEAR RATE UP 130-150'S WITH ACTIVITY. MD NOTIFIED AND NEW MED ORDERED. NO RESP DISTRESS NOTED TODAY AND PT DENIED ANY S/S WITH ELEVATED HEART RATE. HAD BEEN IN AFIB DURING HEART RATE ELEVATIONS.
[2023-08-25 20:03] VITALS: BP 135/96
--- NOTE | 2023-08-26 03:45 | NUR ---
SHIFT SUMMARY: PATIENT A/OX4, [place], PLEASANT AND COOPERATIVE c CARE. PATIENT USES CALL LIGHT APPROPRIATELY AND ABLE TO MAKE NEEDS KNOWN. PATIENT DENIES CP/PRESSURE, SOB, N/V, AND NO EVENTS OF NOSE BLEED THIS SHIFT. PATIENT STILL ON TELE, AFIB HR IN THE 90'S-120'S BPM THIS SHIFT. PATIENT USES URINAL INDEPENDENTLY AT THE BEDSIDE. RA c CONTINUES PULSE OX, SPO2 IN THE LOW TO MID 90'S. PATIENT SLEPT WELL THIS SHIFT. PATIENT HAS NO COMPLAINTS OR DENIES ANY NEW CONCERNED THIS SHIFT. PATIENT RECEIVED SCHEULED MEDS PER EMAR, VITAL SIGNS REVIEWED. PIV TO L FOREARM SALINE LOCKED. CALL LIGHT IN REACH.
[2023-08-26 04:01] VITALS: BP 146/84
[2023-08-26 05:43] LABS: Hematocrit 40.3 % (37.0-53.0); Hemoglobin 13.1 g/dL (13.5-17.5); Mean Corpuscular HGB 27.8 pg (26.0-34.0); Mean Corpuscular HGB Conc 32.5 g/dL (31.5-36.5); Mean Corpuscular Volume 86 fL (80-100); Mean Platelet Volume 10.2 fL (9.1-12.4); Platelet Count 193 K/mm3 (150-400); RDW Coefficient Variation 13.4 % (11.7-14.2); RDW Standard Deviation 41.8 fL (35.1-46.3); Red Blood Cell Count 4.71 M/mm3 (4.30-5.90); White Blood Cell Count 9.23 K/mm3 (4.00-11.30)
[2023-08-26 06:14] LABS: Bun/Creatinine Ratio 26.6 (12.0-20.0); Calcium, Blood 9.3 mg/dL (8.5-10.1); Creatinine, Blood 0.94 mg/dL (0.60-1.20); Potassium, Blood 4.2 mmol/L (3.5-5.5)
[2023-08-26 07:26] VITALS: BP 124/75
[2023-08-26] MEDS ORDERED: DOXY100 PO (11:34)
[2023-08-26] MEDS ORDERED: DILT180 PO (11:34)
[2023-08-26] MEDS ORDERED: METO50ER PO (11:34)
[2023-08-26] MEDS ORDERED: Vitamin D1000 UNI1 PO (11:35)
[2023-08-26] MEDS ORDERED: ASPI81CH PO (11:44)
--- NOTE | 2023-08-26 12:45 | NUR ---
DISCHARGE INSTRUCTIONS COMPLETED AND DISCUSSED WITH PT AND SON IN LAW EXPRESSING UNDERSTANDING. SCRIPTS FAXED TO [facility] PER PT REQUEST. TO [facility] VIA W/C.
== END 2023-08-26 12:41 | disposition home health service (06) | DRG 871 ==
LOC: ER 19:48 → MEDS 20:56
PROVIDERS: Internal Medicine; Student in an Organized Health Care Education/Training Program; ADMIT Internal Medicine
DX: A41.9 Sepsis, unspecified organism (principal); J18.0 Bronchopneumonia, unspecified organism; J96.01 Acute respiratory failure with hypoxia; J44.0 Chronic obstructive pulmonary disease with (acute) lower respiratory infection; J44.1 Chronic obstructive pulmonary disease with (acute) exacerbation; I48.21 Permanent atrial fibrillation; E11.22 Type 2 diabetes mellitus with diabetic chronic kidney disease; N18.30 Chronic kidney disease, stage 3 unspecified; R54 Age-related physical debility; Z79.84 Long term (current) use of oral hypoglycemic drugs; Z79.82 Long term (current) use of aspirin; Z86.718 Personal history of other venous thrombosis and embolism; Z87.891 Personal history of nicotine dependence; Z11.52 Encounter for screening for COVID-19; Z91.81 History of falling
CPT/HCPCS: 0241U; 36415; 71045; 71046; 80048; 80053; 82803; 82947; 83605; 83880; 84145; 84484; 85025; 85027; 87040; 93005; 93010; 94762; 96361; 96365; 96368; 96375; 97116; 97162; 97530; 99285-25; A9270; J0456; J0690; J0696; J1650; J2405; J7030; J7050; P9047

== ENCOUNTER 2024-03-20 13:58 | Inpatient (IN) | payer MEDICARE ==
[~2024-03-20] VITALS: Ht 193 cm; Wt 105.0 kg
[~2024-03-20 13:58] MED LIST changes: +ASPI81CH PO; +DILT180 PO; +DOXY100 PO; +FURO40 PO; +LISI5 PO; +METO25ER PO; +METO50ER PO; +Vitamin D1000 UNI1 PO
[2024-03-20 16:04] LABS: BASOPHILS ABSOLUTE AUTO 0.08 K/mm3 (0.00-0.23); BASOPHILS PERCENT AUTO 1 % (0-2); EOSINOPHILS ABSOLUTE AUTO 0.16 K/mm3 (0.00-0.68); EOSINOPHILS PERCENT AUTO 2 % (0-6); Hematocrit 40.6 % (37.0-53.0); Hemoglobin 13.2 g/dL (13.5-17.5); IMMATURE GRAN ABSOLUTE AUTO 0.04 K/mm3 (0.00-0.10); IMMATURE GRAN PERCENT AUTO 0 % (0-1); LYMPHOCYTES ABSOLUTE AUTO 1.11 K/mm3 (0.84-5.20); LYMPHOCYTES PERCENT AUTO 11 % (21-46); MONOCYTES ABSOLUTE AUTO 1.08 K/mm3 (0.16-1.47); MONOCYTES PERCENT AUTO 11 % (4-13); Mean Corpuscular HGB 29.3 pg (26.0-34.0); Mean Corpuscular HGB Conc 32.5 g/dL (31.5-36.5); Mean Corpuscular Volume 90 fL (80-100); Mean Platelet Volume 9.8 fL (9.1-12.4); NEUTROPHILS ABSOLUTE AUTO 7.45 K/mm3 (1.96-9.15); NEUTROPHILS PERCENT AUTO 75 % (41-73); Platelet Count 153 K/mm3 (150-400); RDW Coefficient Variation 13.6 % (11.7-14.2); White Blood Cell Count 9.92 K/mm3 (4.00-11.30)
[2024-03-20 16:27] LABS: International Normalized Ratio 1.22; Prothrombin Time Results 12.9 Sec (9.7-11.5)
[2024-03-20 16:32] LABS: Magnesium, Blood 1.9 mg/dL (1.6-2.4)
[2024-03-20 16:34] LABS: Albumin, Blood 2.3 g/dL (3.4-5.0); Albumin/Globulin Ratio 0.5 (0.8-1.8); Bilirubin, Total 2.4 mg/dL (0.1-1.0); Bun/Creatinine Ratio 13.6 (12.0-20.0); Calcium, Blood 9.2 mg/dL (8.5-10.1); Creatinine, Blood 1.03 mg/dL (0.60-1.20); Globulin, Blood 4.6 g/dL (2.2-4.0); Potassium, Blood 3.9 mmol/L (3.5-5.5); Total Protein, Blood 6.9 g/dL (6.4-8.2)
[2024-03-20] MEDS ORDERED: Acetaminophen 325 MG TABLET PO PRN (20:20)
[2024-03-20] MEDS ORDERED: Ondansetron HCl 2 MG / ML 2ML Vial IV PRN (20:20)
[2024-03-20] MEDS ORDERED: NS 1,000 ML IV SCH (20:20)
[2024-03-20] MEDS ORDERED: Metoprolol Tartrate 1 MG/ML 5 ML VIAL IV PRN (20:25)
[2024-03-20] MEDS ORDERED: Metoprolol Succinate 50 MG TABCR PO SCH (21:00)
[2024-03-20 22:00] VITALS: BP 137/99
[2024-03-20 23:00] VITALS: BP 145/95
[2024-03-20 23:15] VITALS: BP 144/94
[2024-03-20 23:30] VITALS: BP 122/109
[2024-03-21] VITALS (13 sets, daily range): BP systolic 107–141; BP diastolic 65–88
[2024-03-21] MEDS ORDERED: Insulin Human Lispro 100 Units/ML 3ML Syringe SC SCH
[2024-03-21 04:04] LABS: Hematocrit 39.3 % (37.0-53.0); Hemoglobin 12.7 g/dL (13.5-17.5); Mean Corpuscular HGB 29.3 pg (26.0-34.0); Mean Corpuscular HGB Conc 32.3 g/dL (31.5-36.5); Mean Corpuscular Volume 91 fL (80-100); Mean Platelet Volume 10.4 fL (9.1-12.4); Platelet Count 142 K/mm3 (150-400); RDW Coefficient Variation 13.5 % (11.7-14.2); RDW Standard Deviation 45.1 fL (35.1-46.3); Red Blood Cell Count 4.34 M/mm3 (4.30-5.90); White Blood Cell Count 10.37 K/mm3 (4.00-11.30)
[2024-03-21 04:20] LABS: International Normalized Ratio 1.2; Prothrombin Time Results 12.7 Sec (9.7-11.5)
[2024-03-21 04:27] LABS: Bun/Creatinine Ratio 13.3 (12.0-20.0); Calcium, Blood 8.6 mg/dL (8.5-10.1); Creatinine, Blood 0.98 mg/dL (0.60-1.20); Magnesium, Blood 1.7 mg/dL (1.6-2.4); Potassium, Blood 4.1 mmol/L (3.5-5.5)
[2024-03-21] MEDS ORDERED: NS 250 ML IV ONE (14:57)
[2024-03-21] MEDS ORDERED: Heparin Sodium 1000 Units/ML 10ML MDV ONE (14:57)
[2024-03-21] MEDS ORDERED: FentaNYL Citrate 50 MCG/ML 2 ML Injection ONE (15:17)
[2024-03-21] MEDS ORDERED: NS 500 ML IV ONE (15:17)
[2024-03-21] MEDS ORDERED: Midazolam HCl 1MG / ML 2ML Vial ONE (15:17)
--- NOTE | 2024-03-21 18:13 | NUR ---
SHIFT SUMMARY; ASSUMED CARE AT 0700. A/A/OX4. UPDATED ON PLAN FOR DAY, NPO FOR POSSIBLE IVC FILTER. VSS, REPOSITIONS SELF ON BED. ELIJAH TO LAC ON POSTERIOR HEAD FROM A COUPLE DAYS AGO C/D/I. LAC WITH SUTURES TO LEFT ELBOW WITH DRESSING C/D/I. SEE PHOTOS IN CHART. TO PHYSICS PROFESSOR IN AFTERNOON FOR IVC, RECOVERED PER ORDERS. NO SWELLING OR BLEEDING FROM RIGHT GROIN SITE. AQUACEL IN PLACE. NO ACUTE CHANGES, USES CALL LIGHT AND ABLE TO MAKE NEEDS KNOWN. WILL CONTINUE TO MONITOR AND TREAT UNTIL CHANGE OF SHIFT.
[2024-03-22 03:31] VITALS: BP 99/69
[2024-03-22 03:49] LABS: BASOPHILS PERCENT AUTO 1 % (0-2); EOSINOPHILS PERCENT AUTO 7 % (0-6); Hematocrit 37.2 % (37.0-53.0); IMMATURE GRAN ABSOLUTE AUTO 0.04 K/mm3 (0.00-0.10); IMMATURE GRAN PERCENT AUTO 1 % (0-1); LYMPHOCYTES ABSOLUTE AUTO 0.76 K/mm3 (0.84-5.20); LYMPHOCYTES PERCENT AUTO 9 % (21-46); MONOCYTES ABSOLUTE AUTO 0.98 K/mm3 (0.16-1.47); MONOCYTES PERCENT AUTO 12 % (4-13); Mean Corpuscular HGB 29.8 pg (26.0-34.0); Mean Corpuscular HGB Conc 32.3 g/dL (31.5-36.5); Mean Corpuscular Volume 92 fL (80-100); NEUTROPHILS ABSOLUTE AUTO 5.82 K/mm3 (1.96-9.15); NEUTROPHILS PERCENT AUTO 70 % (41-73); Platelet Count 152 K/mm3 (150-400); RDW Coefficient Variation 13.5 % (11.7-14.2); RDW Standard Deviation 45.7 fL (35.1-46.3); Red Blood Cell Count 4.03 M/mm3 (4.30-5.90)
[2024-03-22 04:04] LABS: International Normalized Ratio 1.23
[2024-03-22 04:07] LABS: Calcium, Blood 8.1 mg/dL (8.5-10.1); Creatinine, Blood 0.88 mg/dL (0.60-1.20); Magnesium, Blood 1.7 mg/dL (1.6-2.4)
--- NOTE | 2024-03-22 05:11 | NUR ---
SHIFT SUMMARY PT A&O X4, ABLE TO MAKE NEEDS KNOWN, PT IS [place] & [place] BUT HAS BILATERAL HEARING AIDS. IVC FILTER PLACED R GROIN SITE IS WITHOUT BLEEDING, REDNESS, OR HEMATOMA. PT HAS DRESSINGS TO HEAD AND L ELBOW, BOTH ARE C/D/I. VSS, AFEBRILE, SPO2 >92% ON 3L NC. TELE SHOWS SR/ ST 90'S-110'S. PT IS RESTING QUIETLY IN BED, CALL LIGHT IN REACH, BREATHING EVEN AND UNLABORED.
[2024-03-22 07:19] VITALS: BP 133/91
[2024-03-22 11:44] VITALS: BP 130/82
== END 2024-03-22 14:23 | disposition home health service (06) | DRG 175 ==
LOC: ER 13:58 → ERHOLD 21:45 → PCU 22:20
PROVIDERS: Nurse Practitioner Acute Care; Student in an Organized Health Care Education/Training Program; ADMIT Internal Medicine
PROC: 06H03DZ Insertion of Intraluminal Device into Inferior Vena Cava, Percutaneous Approach (ICD-10-PCS; principal; 2024-03-21)
DX: I26.93 Single subsegmental thrombotic pulmonary embolism without acute cor pulmonale (principal); S06.5XAA Traumatic subdural hemorrhage with loss of consciousness status unknown, initial encounter; I50.22 Chronic systolic (congestive) heart failure; I13.0 Hypertensive heart and chronic kidney disease with heart failure and stage 1 through stage 4 chronic kidney disease, or unspecified chronic kidney disease; I48.20 Chronic atrial fibrillation, unspecified; E11.22 Type 2 diabetes mellitus with diabetic chronic kidney disease; N18.30 Chronic kidney disease, stage 3 unspecified; J45.909 Unspecified asthma, uncomplicated; Z86.718 Personal history of other venous thrombosis and embolism; Z79.82 Long term (current) use of aspirin; Z79.4 Long term (current) use of insulin; Z79.811 Long term (current) use of aromatase inhibitors; Z79.899 Other long term (current) drug therapy; Z66 Do not resuscitate; H91.90 Unspecified hearing loss, unspecified ear; W18.30XA Fall on same level, unspecified, initial encounter
CPT/HCPCS: 36415; 70450; 70496; 70498; 71046; 71260; 76937; 80048; 80053; 82947; 83735; 83880; 84484; 85025; 85027; 85379; 85610; 93005; 93010; 93970; 94762; 97110; 97116; 97162; 99152; 99285-25; A9270; C1769; C1880; J1644; J2250; J3010; J7030; J7040; J7050; Q9967

== ENCOUNTER 2024-06-30 11:18 | Day surgery (SDC) | payer MEDICARE ==
[2024-06-30] VITALS (9 sets, daily range): BP systolic 121–160; BP diastolic 83–126
[~2024-06-30] VITALS: Ht 193 cm; Wt 106.6 kg
[~2024-06-30 11:18] MED LIST changes: +Aspir 8181 MG PO; +MOXIOPS BOTHEYES
[2024-06-30] MEDS ORDERED: Heparin Sodium 1000 Units/ML 10ML MDV ONE (12:32)
[2024-06-30] MEDS ORDERED: NS 250 ML IV ONE (12:32)
[2024-06-30] MEDS ORDERED: Midazolam HCl 1MG / ML 2ML Vial ONE (12:42)
[2024-06-30] MEDS ORDERED: NS 500 ML IV ONE (12:43)
[2024-06-30] MEDS ORDERED: FentaNYL Citrate 50 MCG/ML 2 ML Injection ONE (12:43)
--- NOTE | 2024-06-30 13:30 | NUR ---
patient arrived to recovery room, a&o, dressing to right neck D&I, no hematoma, no bleeding
--- NOTE | 2024-06-30 13:47 | NUR ---
patient up at bedside to void
--- NOTE | 2024-06-30 13:54 | NUR ---
PT LAYING IN BED WITH HOB ELEVATED DRINKING WATER. R IJ IVC FILTER REMOVAL SITE SOFT NON-TENDER WITH NO HEMATOMA, NO BLEEDING AND INTACT DRESSING. CALL LIGHT IN REACH.
--- NOTE | 2024-06-30 15:01 | NUR ---
patient dressed and up to rest room patient verbalized understanding of discahrge instructions and precautions. site soft and nontender, no hematoma, no bleeding iv site dced with catheter intact, patient discharged home in the care of daughter and son in law.
== END 2024-06-30 16:09 | disposition home or self-care (01) ==
LOC: MHTC 11:18
DX: Z45.89 Encounter for adjustment and management of other implanted devices (principal); I12.9 Hypertensive chronic kidney disease with stage 1 through stage 4 chronic kidney disease, or unspecified chronic kidney disease; E11.22 Type 2 diabetes mellitus with diabetic chronic kidney disease; N18.9 Chronic kidney disease, unspecified; J44.9 Chronic obstructive pulmonary disease, unspecified; I48.20 Chronic atrial fibrillation, unspecified; Z86.711 Personal history of pulmonary embolism; Z87.891 Personal history of nicotine dependence; Z79.82 Long term (current) use of aspirin; Z79.84 Long term (current) use of oral hypoglycemic drugs; Z79.899 Other long term (current) drug therapy
CPT/HCPCS: 76937; 99152; C1769; C1773; C1894; J1644; J2250; J3010; J7040; J7050; Q9967

== ENCOUNTER 2024-09-10 17:50 | Inpatient (IN) | payer OTHER ==
[~2024-09-10] VITALS: Ht 193 cm; Wt 105.7 kg
[2024-09-10 19:00] LABS: BASOPHILS ABSOLUTE AUTO 0.04 K/mm3 (0.00-0.23); BASOPHILS PERCENT AUTO 0 % (0-2); EOSINOPHILS ABSOLUTE AUTO 0.08 K/mm3 (0.00-0.68); EOSINOPHILS PERCENT AUTO 1 % (0-6); Hematocrit 38.2 % (37.0-53.0); Hemoglobin 11.7 g/dL (13.5-17.5); IMMATURE GRAN ABSOLUTE AUTO 0.06 K/mm3 (0.00-0.10); IMMATURE GRAN PERCENT AUTO 0 % (0-1); LYMPHOCYTES ABSOLUTE AUTO 1.02 K/mm3 (0.84-5.20); LYMPHOCYTES PERCENT AUTO 6 % (21-46); MONOCYTES ABSOLUTE AUTO 1.51 K/mm3 (0.16-1.47); MONOCYTES PERCENT AUTO 9 % (4-13); Mean Corpuscular HGB 22.9 pg (26.0-34.0); Mean Corpuscular HGB Conc 30.6 g/dL (31.5-36.5); Mean Corpuscular Volume 75 fL (80-100); Mean Platelet Volume 9.4 fL (9.1-12.4); NEUTROPHILS ABSOLUTE AUTO 14.89 K/mm3 (1.96-9.15); NEUTROPHILS PERCENT AUTO 85 % (41-73); Platelet Count 208 K/mm3 (150-400); RDW Standard Deviation 45.1 fL (35.1-46.3); Red Blood Cell Count 5.11 M/mm3 (4.30-5.90)
[2024-09-10 19:34] LABS: Albumin, Blood 2.4 g/dL (3.4-5.0); Albumin/Globulin Ratio 0.5 (0.8-1.8); Bilirubin, Total 1.6 mg/dL (0.1-1.0); Bun/Creatinine Ratio 14.9 (12.0-20.0); Creatinine, Blood 0.94 mg/dL (0.60-1.20); Globulin, Blood 4.7 g/dL (2.2-4.0); Potassium, Blood 3.9 mmol/L (3.5-5.5); Total Protein, Blood 7.1 g/dL (6.4-8.2)
[2024-09-10] MEDS ORDERED: NS 1,000 ML IV SCH ×2 (19:55→23:00)
[2024-09-10 20:47] LABS: Free Thyroxine 1.24 ng/dL (0.70-1.60); Thyroid Stimulating Hormone 0.164 uIU/mL (0.360-4.800)
[2024-09-10] MEDS ORDERED: CefTRIAXone Sodium 1,000 MG in NS 100 ML IV ONE (20:50)
[2024-09-10] MEDS ORDERED: Doxycycline Hyclate 100 MG in Dextrose 5% 250 ML IV ONE (20:50)
[2024-09-10 21:30] LABS: Source, Urine Clean Catch
[2024-09-10 21:31] LABS: Influenza A, PCR NEGATIVE (NEGATIVE); Influenza B, PCR NEGATIVE (NEGATIVE); Resp Syncytial Virus, PCR NEGATIVE (NEGATIVE); SARS-Cov-2 (COVID-19) PCR, MMC NEGATIVE (NEGATIVE)
[2024-09-10 21:36] LABS: Bilirubin, Urine Neg (Neg); Blood, Urine 2+ (Neg); Glucose Qualitative, Urine Neg (Neg); Ketones, Urine Neg (Neg); Leukocyte Esterase, Urine Neg (Neg); Nitrite, Urine Neg (Neg); Protein, Urine 3+ (Neg); Specific Gravity, Urine 1.015 (1.003-1.022); Urobilinogen, Urine NORM (Normal)
[2024-09-10 21:45] LABS: Appearance, Urine Clear (Clear); Color, Urine Yellow (P-Yellow)
[2024-09-10 21:46] LABS: Bacteria Not Seen /hpf; Hyaline Casts 0-2 /lpf (0-2); Red Blood Cells, Urine 0-2 /hpf (0-2); Squamous Epithelial Cells Not Seen /hpf (Few); White Blood Cells, Urine 0-2 /hpf (0-5)
[2024-09-10] MEDS ORDERED: FLU VACC TS2024-25(6MOS UP)/PF 45 MCG/0.5 ML SYRINGE IM ONE (22:35)
[2024-09-11] VITALS (10 sets, daily range): BP systolic 109–173; BP diastolic 61–107
[2024-09-11] MEDS ORDERED: Metoprolol Tartrate 1 MG/ML 5 ML VIAL IV ONE (01:40)
[2024-09-11 04:21] LABS: BASOPHILS ABSOLUTE AUTO 0.05 K/mm3 (0.00-0.23); BASOPHILS PERCENT AUTO 0 % (0-2); EOSINOPHILS ABSOLUTE AUTO 0.01 K/mm3 (0.00-0.68); EOSINOPHILS PERCENT AUTO 0 % (0-6); Hematocrit 36.8 % (37.0-53.0); Hemoglobin 11.6 g/dL (13.5-17.5); IMMATURE GRAN ABSOLUTE AUTO 0.16 K/mm3 (0.00-0.10); IMMATURE GRAN PERCENT AUTO 1 % (0-1); LYMPHOCYTES ABSOLUTE AUTO 0.77 K/mm3 (0.84-5.20); LYMPHOCYTES PERCENT AUTO 4 % (21-46); MONOCYTES ABSOLUTE AUTO 1.77 K/mm3 (0.16-1.47); MONOCYTES PERCENT AUTO 9 % (4-13); Mean Corpuscular HGB 23.5 pg (26.0-34.0); Mean Corpuscular HGB Conc 31.5 g/dL (31.5-36.5); Mean Corpuscular Volume 75 fL (80-100); Mean Platelet Volume 9.8 fL (9.1-12.4); NEUTROPHILS ABSOLUTE AUTO 18.01 K/mm3 (1.96-9.15); NEUTROPHILS PERCENT AUTO 87 % (41-73); Platelet Count 188 K/mm3 (150-400); RDW Standard Deviation 45.4 fL (35.1-46.3); Red Blood Cell Count 4.93 M/mm3 (4.30-5.90); White Blood Cell Count 20.77 K/mm3 (4.00-11.30)
[2024-09-11 04:44] LABS: Albumin, Blood 2.2 g/dL (3.4-5.0); Albumin/Globulin Ratio 0.5 (0.8-1.8); Bilirubin, Total 1.4 mg/dL (0.1-1.0); Bun/Creatinine Ratio 13.4 (12.0-20.0); Calcium, Blood 8.8 mg/dL (8.5-10.1); Creatinine, Blood 0.89 mg/dL (0.60-1.20); Globulin, Blood 4.4 g/dL (2.2-4.0); Potassium, Blood 3.3 mmol/L (3.5-5.5); Total Protein, Blood 6.6 g/dL (6.4-8.2)
--- NOTE | 2024-09-11 05:06 | NUR ---
SHIFT SUMMARY ASSUMED CARE FROM ED AT APPROX 0030. PT A&O4 AND [place]. PT COOPERATIVE IN CARE AND ABLE TO EXPRESS NEEDS ALONG WITH USING THE CALL LIGHT FOR ASSISTANCE. PT WAS ABLE TO ANSWER ADMISSION QUESTIONS AND PROVIDE HISTORY. PT STATED NOT TAKING ANY ANTICOAG DESPITE HX OF AFIB. MED REC COMPLETED. PT DID REPORT BLOODY SPUTUM AND HAS IT ON OCCASION FOR THE LAST 5 YEARS AFTER A FALL THAT BROKE HIS NOSE. LEFT MESSAGE W RESIDENT. PT ON MALE PUREWICK BUT STILL HAVING TROUBLE VOIDING WHILE LYING IN BED; PT ONLY ABLE TO VOID WHILE STANDING. VSS AFTER GIVING 1 DOSE OF IV METOPROLOL AND PT REMAINED ON RA. BED IN LOWEST POSITION, CALL LIGHT WITHIN REACH AND BED ALARM ACTIVIATED.
[2024-09-11] MEDS ORDERED: Doxycycline Hyclate 100 MG in Dextrose 5% 250 ML IV SCH (09:00)
[2024-09-11] MEDS ORDERED: Multivitamins 1 Tab PO SCH (10:00)
[2024-09-11] MEDS ORDERED: Metoprolol Succinate 50 MG TABCR PO SCH (10:00)
--- NOTE | 2024-09-11 10:29 | NUR ---
MORNING NOTE THIS RN ASSUMED CARE AT APPROX 0715. PATIENT LETHARGIC, EASILY AROUSABLE WITH VERBAL STIMULI. ALERT AND ORIENTED X4. IS [place] - COMMUNICATES NEEDS EFFECTIVELY. TELEMETRY SHOWING AFIB 90s-110s AT REST, INCREASES 120s-150s WITH ACTIVITY. ASYMPTOMATIC OF INCREASES. DENIES CHEST PAIN, PRESSURE. SBP 150s. HOME METOPROLOL RESTARTED TODAY. ON ROOM AIR, SATs >90%. SLIGHT AUDITORY EXP WHEEZE NOTED. CT PE STUDY COMPLETED THIS MORNING. 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 IV ABX INFUSING PER EMAR. DIET SWITCHED TO CONSISTENT CARB WITH ACHS CBG CHECKS. STANDS AT BEDSIDE WITH 1P ASSIST TO VOID - MALE PW IN PLACE FOR URGE INCONTINENCY. HX OF FREQUENT FALLS AT HOME - REPORTS USE OF FWW. CALL LIGHT IN REACH. DAUGHTER AT BEDSIDE.
[2024-09-11] MEDS ORDERED: Insulin Human Lispro 100 Units/ML 3ML Syringe SC SCH (11:30)
--- NOTE | 2024-09-11 17:15 | NUR ---
TRANSFER OF CARE NO ACUTE CHANGES SINCE MORNING NOTE. MEDICAL STATUS WITH TELEMETRY. REMAINS ALERT AND ORIENTED X4. COMMUNICATING NEEDS EFFECTIVELY - HEARING AIDES AT BEDSIDE. VSS. SBP 130s-150s. MAP >65. TELEMETRY SHOWING AFIB 80s-90s AT REST. 90s-110s WITH ACTIVITY. REMAINS ON ROOM AIR, SATs >90%. WORKED WITH OCCUPATIONAL THERAPY - UP TO CHAIR WITH MEALS. 1P ASSIST WITH FWW GB. VOIDING - MALE PUREWICK IN PLACE. DAUGHTER AT BEDSIDE THROUGHOUT DAY. REPORT GIVEN TO MARY CARMEN APONTE TO ASSUME CARE ON MEDICAL FLOOR. PATIENT TRANSFERRED TO MEDICAL FLOOR AT APPROX 1715. PERSONAL BELONGINGS WITH PATIENT.
--- NOTE | 2024-09-11 18:30 | NUR ---
PATIENT IS ALERT AND ORIENTED AND COOPERATIVE WITH CARE. [place]. CALLS APPROPRIATELY. MALE PUREWICK REMOVED ONCE HE ARRIVED TO THE FLOOR. ATTENDS IN PLACE, PATIENT SAYS HE WILL CALL WHEN HE NEEDS TO VOID. CONTINENT OF BOWEL AND BLADDER AT HOME. ON RA. WILL CONTINUE TO MONITOR
[2024-09-11] MEDS ORDERED: NS 250 ML IV PRN (19:55)
[2024-09-11] MEDS ORDERED: CefTRIAXone Sodium 1,000 MG in NS 100 ML IV SCH (21:00)
[2024-09-12 02:58] VITALS: BP 125/77
--- NOTE | 2024-09-12 06:19 | NUR ---
Shift Summary No acute changes. Pt continent, using urinal t/o the shift. No c/o of pain or nausea. AOx4, very [place]. Slept well t/o the night.
[2024-09-12 07:42] VITALS: BP 142/75
[2024-09-12] MEDS ORDERED: Aspirin 81 MG TabEC PO SCH (09:00)
[2024-09-12 09:45] LABS: Hematocrit 37.8 % (37.0-53.0); Hemoglobin 11.3 g/dL (13.5-17.5); Mean Corpuscular HGB 22.9 pg (26.0-34.0); Mean Corpuscular HGB Conc 29.9 g/dL (31.5-36.5); Mean Corpuscular Volume 77 fL (80-100); Mean Platelet Volume 9.8 fL (9.1-12.4); Platelet Count 209 K/mm3 (150-400); RDW Coefficient Variation 17.1 % (11.7-14.2); RDW Standard Deviation 47.3 fL (35.1-46.3); Red Blood Cell Count 4.94 M/mm3 (4.30-5.90); White Blood Cell Count 14.12 K/mm3 (4.00-11.30)
[2024-09-12 10:07] LABS: Albumin, Blood 2.1 g/dL (3.4-5.0); Albumin/Globulin Ratio 0.5 (0.8-1.8); Bilirubin, Total 1.5 mg/dL (0.1-1.0); Bun/Creatinine Ratio 17.4 (12.0-20.0); Creatinine, Blood 0.86 mg/dL (0.60-1.20); Globulin, Blood 4.6 g/dL (2.2-4.0); Potassium, Blood 3.5 mmol/L (3.5-5.5); Total Protein, Blood 6.7 g/dL (6.4-8.2)
[2024-09-12] MEDS ORDERED: FUROSEMIDE40 MG PO (14:48)
[2024-09-12] MEDS ORDERED: Magnesium Hydroxide Conc 10 ML UDC PO PRN (17:00)
[2024-09-12] MEDS ORDERED: Magnesium Hydroxide Conc 10 ML UDC PO ONE (17:00)
--- NOTE | 2024-09-12 18:07 | NUR ---
SHIFT SUMMARY NO NEW ISSUES TODAY. PATIENT IS UP TO CHAIR FOR AFTERNOON AND FOR DINNER, HE IS A 1 PERSON ASSIST WITH WALKER AND GAIT BELT. HE WAS ABLE TO WALK TO THE HALLWAY AND BACK WITH 1 PERSON. BED IN LOW POSITION, CALL LIGHT IN REACH. PATIENT ABLE TO CALL APPROPRIATELY.
[2024-09-12 19:53] VITALS: BP 132/87
[2024-09-12] MEDS ORDERED: Docusate Sodium 100 MG Cap PO SCH (21:00)
[2024-09-13 05:20] VITALS: BP 140/96
[2024-09-13 05:21] VITALS: BP 140/96
--- NOTE | 2024-09-13 06:10 | NUR ---
Shift Summary Removed RAC IV d/t redness and tenderness, a new IV was placed pt's LFA. Because of these IV issues pt's rocephin was late, see EMAR. No BM this shift (or since 09/09/24 per pet) , pt given PRN MoM and scheduled bowel meds. VSS, AOX4, rcving IV ABX until medically stable for DC.
[2024-09-13 07:48] VITALS: BP 133/95
[2024-09-13] MEDS ORDERED: Polyethylene Glycol 3350 17 gm PO ONE (08:00)
[2024-09-13] MEDS ORDERED: DOCU100 PO (10:50)
[2024-09-13] MEDS ORDERED: MULVITA PO (10:51)
[2024-09-13] MEDS ORDERED: VISBIOME 112.51 EACH PO (10:51)
[2024-09-13] MEDS ORDERED: AMOCLA875 PO (10:52)
--- NOTE | 2024-09-13 12:33 | NUR ---
DISCHARGE SUMMARY PATIENT WITH NO ADVERSE EVENTS THROUGHOUT SHIFT. HE IS INCREASING IN ACTIVITY WITH LESS SHORTNESS OF BREATH. VSS. PATIENT MEDICATION AND EDUCATION PACKET PRINTED AND REVIEWED WITH PATIENT AND DAUGTHER. SIGNATURE OBTAINED FROM PATIENT. ALL QUESTIONS ANSWERED. PATIENT LEFT UNIT AT 1230 VIA TRANSPORT CHAIR WITH SON IN LAW AND DAUGHTER TO [place].
== END 2024-09-13 12:30 | disposition home health service (06) | DRG 871 ==
LOC: ER 17:50 → ERHOLD 17:51 → PCU 17:51 → ERHOLD 22:35 → ER 22:35 → PCU 09-11 00:15 → MEDS 09-11 00:15 → PCU 09-11 14:35 → MEDS 09-11 17:15
PROVIDERS: Emergency Medicine; Internal Medicine; Physician Assistant; ADMIT Internal Medicine
DX: A41.9 Sepsis, unspecified organism (principal); J18.9 Pneumonia, unspecified organism; I13.0 Hypertensive heart and chronic kidney disease with heart failure and stage 1 through stage 4 chronic kidney disease, or unspecified chronic kidney disease; E87.20 Acidosis, unspecified; R65.20 Severe sepsis without septic shock; K80.20 Calculus of gallbladder without cholecystitis without obstruction; Z66 Do not resuscitate; I48.91 Unspecified atrial fibrillation; Z99.81 Dependence on supplemental oxygen; Z91.81 History of falling; E11.22 Type 2 diabetes mellitus with diabetic chronic kidney disease; N18.30 Chronic kidney disease, stage 3 unspecified; I50.9 Heart failure, unspecified; Z86.718 Personal history of other venous thrombosis and embolism; Z98.890 Other specified postprocedural states; Z87.891 Personal history of nicotine dependence; Z79.82 Long term (current) use of aspirin; Z79.84 Long term (current) use of oral hypoglycemic drugs; Z79.899 Other long term (current) drug therapy
CPT/HCPCS: 0241U; 36415; 71046; 71260; 76705; 80053; 81001; 82607; 82746; 82947; 83605; 84145; 84439; 84443; 85025; 85027; 85379; 87040; 93005; 93010; 94760; 96365; 96375; 96376; 97116; 97162; 97165; 97530; 97535; 99285-25; A9270; G0378; J0696; J7030; J7050; J7060; Q9967